=== PATIENT | male | born 1950 ===

== ENCOUNTER → 2024-06-05 | Outpatient (REF) | LOC: M CFLAB 14:55 | DX: N39.0 Urinary tract infection, site not specified (principal) ==

== ENCOUNTER → 2025-02-22 | Outpatient (REF) | LOC: M LABCFH 13:25 | DX: N39.0 Urinary tract infection, site not specified (principal) ==

== ENCOUNTER → 2025-03-10 | Outpatient (REF) | LOC: M CFLAB 11:01 | PROVIDERS: ATTEND Nurse Practitioner Family | DX: N39.0 Urinary tract infection, site not specified (principal) ==